=== PATIENT | male | born 1955 | race Two or more races ===

== ENCOUNTER 2022-07-04 10:00 | Inpatient (IN) | payer OTHER ==
[~2022-07-04] VITALS: Ht 157.5 cm; Wt 57.2 kg
[2022-07-04] MEDS ORDERED: TENORMIN25 MG PO (10:58)
[2022-07-04] MEDS ORDERED: METFORMIN HCL500 M3 PO (10:59)
[2022-07-09] MEDS ORDERED: ACETAMINOPHEN325 MG (09:37)
[2022-07-09] MEDS ORDERED: ATORVASTATIN CA20 MG (09:37)
[2022-07-13] MEDS ORDERED: PROTONIX40 MG PO (08:27)
[2022-07-13] MEDS ORDERED: INTESTINEX680 M1 PO (08:27)
[2022-07-13] MEDS ORDERED: ULTRACET PO (08:27)
[2022-07-13] MEDS ORDERED: IMODIUM A-D2 MG PO (08:28)
[2022-07-13] MEDS ORDERED: AMOX1TAB5 PO (08:28)
== END 2022-07-13 11:47 | disposition home or self-care (01) | DRG 331 ==
LOC: O/R 07-09 07:28 → SURH 07-09 07:28 → SURG 07-09 10:00 → SURH 07-09 19:24
PROVIDERS: ADMIT Surgery; ATTEND Surgery
PROC: 0DBP4ZZ Excision of Rectum, Percutaneous Endoscopic Approach (ICD-10-PCS; 2022-07-09)
PROC: 0DTN4ZZ Resection of Sigmoid Colon, Percutaneous Endoscopic Approach (ICD-10-PCS; 2022-07-09)
PROC: 07BC4ZZ Excision of Pelvis Lymphatic, Percutaneous Endoscopic Approach (ICD-10-PCS; 2022-07-09)
PROC: 0D1B4Z4 Bypass Ileum to Cutaneous, Percutaneous Endoscopic Approach (ICD-10-PCS; principal; 2022-07-09 11:30)
DX: C20 Malignant neoplasm of rectum (principal); R19.5 Other fecal abnormalities; R59.0 Localized enlarged lymph nodes; Z20.822 Contact with and (suspected) exposure to COVID-19; E11.9 Type 2 diabetes mellitus without complications; I11.9 Hypertensive heart disease without heart failure; Z79.4 Long term (current) use of insulin

== ENCOUNTER 2023-01-10 09:52 | Inpatient (IN) | payer OTHER ==
[~2023-01-10] VITALS: Ht 157.5 cm; Wt 58.1 kg
[~2023-01-10 09:52] MED LIST: ACETAMINOPHEN325 MG; AMOX1TAB5 PO; ATORVASTATIN CA20 MG; IMODIUM A-D2 MG PO; INTESTINEX680 M1 PO; METFORMIN HCL500 M3 PO; PROTONIX40 MG PO; TENORMIN25 MG PO; ULTRACET PO
[2023-01-14] MEDS ORDERED: GEMFIBROZIL600 MG (08:30)
[2023-01-14] MEDS ORDERED: HEATING PAD1 EACH (08:30)
[2023-01-14] MEDS ORDERED: ATORVASTATIN CA20 MG (08:30)
[2023-01-14] MEDS ORDERED: VITAMIN D3125 MC1 (08:30)
[2023-01-17] MEDS ORDERED: TRAM1TAB98 PO (10:49)
[2023-01-17] MEDS ORDERED: PROTONIX40 MG PO (10:49)
== END 2023-01-17 13:13 | disposition home or self-care (01) | DRG 330 ==
LOC: ADM 10:00 → EDSTATUS 10:00 → O/R 01-14 05:12 → SURH 01-14 05:12 → SURG 01-14 07:00 → SURH 01-14 09:43 → SURG 01-14 10:00 → SURH 01-17 13:13
PROVIDERS: ADMIT Surgery; ATTEND Surgery
PROC: 0DQB4ZZ Repair Ileum, Percutaneous Endoscopic Approach (ICD-10-PCS; principal; 2023-01-14 07:00)
DX: Z43.2 Encounter for attention to ileostomy (principal); C20 Malignant neoplasm of rectum; R59.0 Localized enlarged lymph nodes